=== PATIENT | female | born 1960 | race Caucasian/White ===

== ENCOUNTER 2024-12-08 11:06 | Outpatient (AMB) | payer BC, SELFPAY ==
--- NOTE | 2024-12-08 11:10 | MHC.OFFVIS ---
Vital Signs 12/08/24 11:11 Height 5 ft 4 in BP 170/80 H Blood Pressure Location Lt brachial Position Sitting Pulse 84 Pulse Source Pulse Oximeter Pulse Oximetry (%) 98 Oxygen Delivery Method Room Air Intake Visit Reasons: Arthritis Intake Note: patient presents for arthritis and states that she is in aot of pain today. Accompanied by: Self / Same As Patient Allergies Penicillins Adverse Reaction (Mild, Verified 12/08/24 11:11) Diarrhea naproxen [From Aleve] Adverse Reaction (Unknown, Verified 12/08/24 11:11) Diarrhea NSAIDS (Non-Steroidal Anti-Inflamma Adverse Reaction (Unknown, Verified 12/08/24 11:11) Unknown lysol Adverse Reaction (Unknown, Uncoded 08/29/24 16:49) unknown HPI HPI Arthritis: Details: New patient evaluation. She has history of psoriasis and is concerned about psoriatic arthritis. She has been experiencing chronic knee pain for years. She was found to have a tendon pathology in knees and osteoarthritis. She also has arthritis in feet and hands. Hx PsO around eyes and extensor surface of elbows. She uses topical steroids when needed. At this time she does not have active psoriasis. She has had chronic Achilles tendon tear not amenable to surgery. She has swelling in her fingers that improves throughout the day. Today she does not have swelling in her hands. Most pain is in her knees. She has failed cortisone injections. She is having PRP treatment in both knees in January from a provider at [facility].. PT for foot pain secondary to arthritis is delayed until PRP treatment. She uses a walker because she does not have good balance. She had to move because she could not go up stairs. MS 1.5-2 hours with minimal pain but she describes soreness in hands in the morning. She developed staph cellulitis R calf. Recently treated. She was prescribed Lasix, which improved lower extremity edema right worse than left. No hx iritis, IBD, chronic back pain when she was young, dactylitis, plantar fasciitis. Mother had dermatitis and arthritis. No family history of psoriasis or psoriatic arthritis. No known family history of rheumatological disease. Medical history and medical list reviewed in expanse. [facility] Medical History Hematuria, microscopic Achilles tendinitis Pastrana's cyst Osteoarthritis Palpitations Asthma Insomnia Anxiety Hypertension Surgical History S/P repair of ventral hernia Hx of cholecystectomy Review of Systems Const All systems reviewed & are unremarkable except as noted in HPI and below Physical Exam Vital Signs: Last Vital Signs Pulse 84 12/08/24 11:11 BP 170/80 H 12/08/24 11:11 Pulse Ox 98 12/08/24 11:11 Oxygen Delivery Method Room Air 12/08/24 11:11 Const Other: General: Comfortable CVS: RRR Respiratory: clear to auscultation bilaterally. Good respiratory effort Skin: No lesions seen MSK: No tenderness to palpate any joint in upper extremity. She has hyperextension of right 2nd and 3rd DIPJ (s/p injury), enlarged right 2nd and 3rd PIP. 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 Normal range of motion of upper extremity. Normal range of motion of bilateral hips. Knee flexion 30 degrees bilateral. Tender MTPs and ankles bilaterally. Pitting edema bilateral dorsal feet and up to the level of knees. Assessment & Plan Assessment & Plan (1) Psoriasis: Comment: Clinically she does not have any findings of inflammatory arthritis including psoriatic arthritis on exam. She has bilateral dorsal foot edema. I will be obtaining x-rays to evaluate her hand and foot pain. I suspect her pain is due to degenerative arthritis. Code(s): L40.9 - Psoriasis, unspecified Category: Medical Plan: X-ray bilateral hands and feet ordered Return to clinic in 1-2 months (2) Bilateral hand pain: Code(s): M79.641 - Pain in right hand; M79.642 - Pain in left hand Category: Medical Plan: See above (3) Foot pain, bilateral: Code(s): M79.671 - Pain in right foot; M79.672 - Pain in left foot Category: Medical Plan: See above Orders: Orders XR hand RT min 3V Today M79.641 - Pain in right hand, M79.642 - Pain in left hand XR hand LT min 3V Today M79.641 - Pain in right hand, M79.642 - Pain in left hand XR foot RT min 3V Today M79.671 - Pain in right foot, M79.672 - Pain in left foot XR foot LT min 3V Today M79.641 - Pain in right hand, M79.642 - Pain in left hand, M79.671 - Pain in right foot, M79.672 - Pain in left foot Coding Level of Care Code New Pt Level 4 (44530) Diagnoses Psoriasis L40.9 Bilateral hand pain M79.641; M79.642 Foot pain, bilateral M79.671; M79.672
[2024-12-08 11:11] VITALS: BP 170/80; PULSE 84; O2SAT 98
--- OUTSIDE RECORDS SUMMARY | 2024-12-08 12:29 | XMS_ITS | Encounter Summary ---
Author Organization [facility] Address [address] [place] [address] Phone Care Team Providers Care Painter Maintenance Name Role Phone Angelina Pastrana MD Primary Care Provider Encounter Details Date Type Department Care Team (Late st Contact Info) Description 12/08/2024 Documentation Only [facility] [address] [place] [address] [facility] [place] [address] [place] [address] Social History Tobacco Use Types Packs/Day Years Used Date Smoking Tobacco: Never Assessed Comments Unknown Sex and Gender Information Value Date Recorded Sex Assigned at Not on file Legal Sex Female 8:11 AM EDT Gender Identity Not on file Sexual Orientation Not on file documented as of this encounter Plan of Treatment Upcoming Encounters Date Type Department Care Team (Late st Contact Info) Description 12/09/2024 3:30 PM EDT Office Visit [facility] [address] [place] [address] Rk Ryan MD [address] [place] [address] [place] [phone] documented as of this encounter Visit Diagnoses Not on filedocumented in this encounter Care Teams Painter Maintenance Relationship Specialty Start Date End Date Angelina Pastrana MD [address] [place] [phone] PCP - General Internal Medicine 11/30/24 documented as of this encounter
--- OUTSIDE RECORDS SUMMARY | 2024-12-08 12:29 | XMS_ITS | Clinical Summary ---
Author Organization [facility] Address [address] [place] [address] Phone Care Team Providers Care Heel Boom Operator Name Role Phone Angelina Pastrana MD Primary Care Provider [phone] Encounters Date Type Department Care Team Description 12/08/2024 Documentation Only [facility] [address] [place] [address] Kristina Guzmán MA 11/30/2024 Telephone [facility] [address] [place] [address] Kristina Guzmán MA 11/30/2024 Office Communication [facility] [address] [place] [address] Kristina Guzmán MA 11/30/2024 Documentation Only [facility] [address] [place] [address] Kristina Guzmán MA from Last 3 Months Social History Tobacco Use Types Packs/Day Years Used Date Smoking Tobacco: Never Assessed Comments Unknown Sex and Gender Information Value Date Recorded Sex Assigned at Not on file Legal Sex Female 8:11 AM EDT Gender Identity Not on file Sexual Orientation Not on file Plan of Treatment Upcoming Encounters Date Type Department Care Team (Late st Contact Info) Description 12/09/2024 3:30 PM EDT Office Visit [facility] [address] [place] [address] Rk Ryan MD [address] [place] [address] [place] [address] Health Maintenance Due Date Last Done Comments Breast Cancer Screening 1960 Colorectal Cancer Screening: Annual FOBT 01/25/2009 Colorectal Cancer Screening: Colonoscopy 01/25/2009 Colorectal Cancer Screening: Sigmoidoscopy 01/25/2009 Influenza Vaccine (Season Ended) 2025 05/12/2020, 09/13/2019 Pneumococcal Vaccine: Pediatrics (0 to 5 Years) and At-Risk Patients (6 to 64 Years) (3 of 3 - PPSV23 or PCV20) 07/05/2025 07/05/2020, 11/18/2019 Hepatitis B Vaccine Aged Out No longe r eligible based on patient's age to complete this topic Insurance Care Teams Heel Boom Operator Relationship Specialty Start Date End Date Angelina Pastrana MD [address] [place] [address] PCP - General Internal Medicine 11/30/24
--- OUTSIDE RECORDS SUMMARY | 2024-12-08 12:29 | XMS_ITS | Encounter Summary ---
Author Organization [facility] Address [address] [place] [address] Phone Care Team Providers Care Office Machine Service Supervisor Name Role Phone Angelina aPstrana MD Primary Care Provider Encounter Details Date Type Department Care Team (Late st Contact Info) Description 11/30/2024 Documentation Only [facility] [address] [place] [address] [facility] [place] [address] [place] [address] Social History Tobacco Use Types [...] Visit [facility] [address] [place] [address] Rk Ryan MD [address] [place] [address] [place] [phone] documented as of this encounter Visit Diagnoses Not on filedocumented in this encounter Care Teams Office Machine Service Supervisor Relationship Specialty Start Date End Date Angelina Pastrana MD [address] [place] [phone] PCP - General Internal Medicine 11/30/24 documented as of this encounter
== END 2024-12-08 11:56 | disposition home or self-care (01) ==
LOC: HO.RHES 11:07
PROVIDERS: PCP Physician Assistant; Visit Provider Internal Medicine Rheumatology
DX: L40.9 Psoriasis, unspecified (principal); M79.641 Pain in right hand; M79.642 Pain in left hand; M79.671 Pain in right foot; M79.672 Pain in left foot
CPT/HCPCS: 99204

== ENCOUNTER 2024-12-14 15:27 | Outpatient (REF) | payer BC, SELFPAY ==
--- OUTSIDE RECORDS SUMMARY | 2024-12-14 17:27 | XMS_ITS | Encounter Summary ---
Author Organization [facility] Address [address] [place] [address] Phone Care Team Providers Care Cardboard Cutter Name Role Phone Angelina Pastrana MD Primary Care Provider [phone] Encounter Details Date Type Department Care Team (Late st Contact Info) Description 12/09/2024 Documentation Only [facility] [address] [place] [address] Thania Almazan [address] [place] [phone] Social History Tobacco Use Types Packs/Day Years Used Date Smoking Tobacco: Never Smokeless Tobacco: Never Comments Unknown Sex and Gender Information Value Date Recorded Sex Assigned at Not on file Legal Sex Female 8:11 AM EDT Gender Identity Not on file Sexual Orientation Not on file documented as of this encounter Plan of Treatment Upcoming Encounters Date Type Department Care Team (Late st Contact Info) Description 01/09/2025 2:30 PM EDT Office Visit [facility] [address] [place] [address] Branden Shaikh MD [address] [place] [address] [place] [address] documented as of this encounter Visit Diagnoses Not on filedocumented in this encounter Care Teams Cardboard Cutter Relationship Specialty Start Date End Date Angelina Pastrana MD [address] [place] [address] PCP - General Internal Medicine 11/30/24 documented as of this encounter
--- OUTSIDE RECORDS SUMMARY | 2024-12-14 17:27 | XMS_ITS | Encounter Summary ---
Author Organization [facility] Address [address] [place] [address] Phone Care Team Providers Care Hassock Maker Name Role Phone Angelina Pastrana MD Primary Care Provider [phone] Encounter Details Date Type Department Care Team (Late st Contact Info) Description 12/08/2024 Documentation Only [facility] [address] [place] [address] Kristina Guzmán [place] [address] [place] [phone] Social History Tobacco Use Types Packs/Day Years [...] Visit [facility] [address] [place] [address] Branden Shaikh MD [address] [place] [address] [address] [place] [address] documented as of this encounter Visit Diagnoses Not on filedocumented in this encounter Care Teams Hassock Maker Relationship Specialty Start Date End Date Angelina Pastrana MD [address] [place] [address] PCP - General Internal Medicine 11/30/24 documented as of this encounter
--- OUTSIDE RECORDS SUMMARY | 2024-12-14 17:27 | XMS_ITS | Encounter Summary ---
Author Organization [facility] Address [address] [place] [address] Phone Care Team Providers Care Office Manager Receptionist Name Role Phone Angelina Pastrana MD Primary Care Provider [phone] Encounter Details Date Type Department Care Team (Late st Contact Info) Description 12/09/2024 Documentation Only [facility] [address] [place] [address] Thania Almazan [address] [place] [phone] Social History Tobacco Use Types Packs/Day Years [...] Visit [facility] [address] [place] [address] Branden Shaikh MD [address] [place] [address] [place] [address] documented as of this encounter Visit Diagnoses Not on filedocumented in this encounter Care Teams Office Manager Receptionist Relationship Specialty Start Date End Date Angelina Pastrana MD [address] [place] [address] PCP - General Internal Medicine 11/30/24 documented as of this encounter
--- OUTSIDE RECORDS SUMMARY | 2024-12-14 17:27 | XMS_ITS | Encounter Summary ---
Author Organization [facility] Address [address] [place] [address] Phone Care Team Providers Care Cementer Machine Applicator Name Role Phone Angelina Pastrana MD Primary Care Provider [phone] Encounter Details Date Type Department Care Team (Late st Contact Info) Description 11/30/2024 Documentation Only [facility] [address] [place] [address] Kristina Guzmán [place] [address] [place] [phone] Social History Tobacco Use Types Packs/Day Years [...] Visit [facility] [address] [place] [address] Branden Shaikh MD [address] [place] [address] [address] [place] [address] documented as of this encounter Visit Diagnoses Not on filedocumented in this encounter Care Teams Cementer Machine Applicator Relationship Specialty Start Date End Date Angelina Pastrana MD [address] [place] [address] PCP - General Internal Medicine 11/30/24 documented as of this encounter
--- OUTSIDE RECORDS SUMMARY | 2024-12-14 17:27 | XMS_ITS | Clinical Summary ---
Author Organization [facility] Address [address] [place] [address] Phone Care Team Providers Care Apprentice Painter Brush Name Role Phone Angelina Pastrana MD Primary Care Provider [phone] Allergies Active Allergy Reactions Criticality Noted Date Comments Codeine 12/09/2024 Erythromycin 12/09/2024 Nsaids 12/09/2024 Other Anaphylaxis High 12/09/2024 Patient is allergic to Lysol Oxycodone 12/09/2024 Penicillins 12/09/2024 Medications metoprolol succinate XL (TOPROL XL) 50 MG 24 hr tablet Take 50 mg by mouth 1 (one) time each day Do not crush or chew. Active mexiletine (MEXITIL) 150 MG capsule Take 150 mg by mouth 1 (one) time each day Active hydroCHLOROthiaz maylin 25 MG tablet Take 25 mg by mouth 1 (one) time each day Active irbesartan (AVAPRO) 300 MG tablet Take 300 mg by mouth 1 (one) time each day Active amLODIPine (NORVASC) 5 MG tablet Take 1 tablet (5 mg total) by mouth 1 (one) time each day 30 tablet 11 12/09/2024 Active Active Problems Problem Noted Date Diagnosed Date Stage 3b chronic kidney disease 12/09/2024 Irregular heart beat Essential hypertension Localized edema Microscopic hematuria Encounters Date Type Department Care Team Description 12/13/2024 Telephone [facility] [address] [place] [place] [address] Thania Almazan 12/09/2024 3:30 PM EDT Office Visit [facility] [address] [place] [address] Branden Shaikh MD Nephrotic range proteinuria (Primary Dx); Stage 3b chronic kidney disease (HCC) 12/09/2024 Documentation Only [facility] [place] [address] [place] [address] Tha, Thania 12/09/2024 Documentation Only [facility] [place] [address] [place] [address] Tha, Thania 12/09/2024 Documentation Only [facility] [place] [address] [place] [address] Tha, Thania 12/09/2024 Documentation Only [facility] [address] [place] [address] Tha, Thania 12/08/2024 Documentation Only [facility] [address] [place] [address] Kristina Guzmán MA 11/30/2024 Telephone [facility] [address] [place] [address] Kristina Guzmán MA 11/30/2024 Office Communication [facility] [address] [place] [address] Kristina Guzmán MA 11/30/2024 Documentation Only [facility] [place] [address] [place] [address] Kristina Guzmán MA from Last 3 Months Immunizations Name Administration Dates Next Due Influenza, MDCK, Quadrivalent, with preservative 09/13/2019 Influenza, Quadrivalent, Preservative Free 05/12 Pfizer SARS-COV-2 01/17/2021,11/09/2020 Pneumococcal Conjugate 13-Valent 11/18/2019 Pneumococcal Polysaccharide 07/05/2020 Family History Medical History Relation Comments Cancer Father of the brain Heart disease Father Asthma Mother Heart disease Mother Hypertension Mother Relation Status Comments Father Mother Social History Tobacco Use Types Packs/Day Years Used Date Smoking Tobacco: Never Smokeless Tobacco: Never Comments Unknown Sex and Gender Information Value Date Recorded Sex Assigned at Not on file Legal Sex Female 8:11 AM EDT Gender Identity Not on file Sexual Orientation Not on file Last Filed Vital Signs Vital Sign Reading Time Taken Comments Blood Pressure 144/74 12/12/2024 4:41 PM EDT Pulse - - Temperature - - Respiratory Rate - - Oxygen Saturation - - Inhaled Oxygen Concentration - - Weight - - Height - - Body Mass Index - - Plan of Treatment Upcoming Encounters Date Type Department Care Team (Late st Contact Info) Description 01/09/2025 2:30 PM EDT Office Visit [facility] [address] [place] [address] Branden Shaikh MD [address] [place] [address] [address] [place] [address] Health Maintenance Due Date Last Done Comments [...] patient's age to complete this topic Insurance [facility] Care Teams Apprentice Painter Brush Relationship Specialty Start Date End Date Angelina Pastrana MD [address] [place] [address] PCP - General Internal Medicine 11/30/24
--- OUTSIDE RECORDS SUMMARY | 2024-12-14 17:27 | XMS_ITS | Encounter Summary ---
Author Organization [facility] Address [address] [place] [address] Phone Care Team Providers Care Scada Engineer Name Role Phone Angelina Pastrana MD Primary Care Provider [phone] Encounter Details Date Type Department Care Team (Late st Contact Info) Description 12/09/2024 3:30 PM EDT Office Visit [facility] [address] [place] [address] Branden Shaikh MD [address] [place] [address] [place] [phone] Nephrotic range proteinuria (Primary Dx); Stage 3b chronic kidney disease (HCC) Social History Tobacco Use Types Packs/Day Years Used Date Smoking Tobacco: Never Smokeless Tobacco: Never Comments Unknown Sex and Gender Information Value Date Recorded Sex Assigned at Not on file Legal Sex Female 8:11 AM EDT Gender Identity Not on file Sexual Orientation Not on file documented as of this encounter Last Filed Vital Signs Vital Sign Reading Time Taken Comments Blood Pressure 144/74 12/12/2024 4:41 PM EDT Pulse - - Temperature - - Respiratory Rate - - Oxygen Saturation - - Inhaled Oxygen Concentration - - Weight - - Height - - Body Mass Index - - documented in this encounter Plan of Treatment Upcoming Encounters Date Type Department Care Team (Late st Contact Info) Description 01/09/2025 2:30 PM EDT Office Visit [facility] [address] [place] [address] Branden Shaikh MD [address] [place] [place] [address] Scheduled Orders Name Type Priority Associated Diagnoses Orde r Schedule Urine Albumin / Creatinine Ratio Lab Routine Nephrotic range proteinuria Stage 3b chronic kidney disease (HCC) Expected: 12/09/2024, Expires: 01/08/2026 Urine Protein / creatinine ratio Lab Routine Nephrotic range proteinuria Stage 3b chronic kidney disease (HCC) Expected: 12/09/2024, Expires: 01/08/2026 Urinalysis with microscopic Lab Routine Nephrotic range proteinuria Stage 3b chronic kidney disease (HCC) Expected: 12/09/2024, Expires: 01/08/2026 Protein electrophoresis, serum Lab Routine Nephrotic range proteinuria Stage 3b chronic kidney disease (HCC) Expected: 12/09/2024, Expires: 01/08/2026 Protein Electrophoresis, Urine Random Lab Routine Nephrotic range proteinuria Stage 3b chronic kidney disease (HCC) Expected: 12/09/2024, Expires: 01/08/2026 Urine Elton / lambda free light chains with ratio Lab Routine Nephrotic range proteinuria Stage 3b chronic kidney disease (HCC) Expected: 12/09/2024, Expires: 12/09/2025 Immunofixation, Serum Lab Routine Nephrotic range proteinuria Stage 3b chronic kidney disease (HCC) Expected: 12/09/2024, Expires: 01/08/2026 C3 complement Lab Routine Nephrotic range proteinuria Stage 3b chronic kidney disease (HCC) Expected: 12/09/2024, Expires: 01/08/2026 C4 complement Lab Routine Nephrotic range proteinuria Stage 3b chronic kidney disease (HCC) Expected: 12/09/2024, Expires: 01/08/2026 Anti-DNA antibody, double-stranded Lab Routine Nephrotic range proteinuria Stage 3b chronic kidney disease (HCC) Expected: 12/09/2024, Expires: 01/08/2026 ANCA Panel Lab Routine Nephrotic range proteinuria Stage 3b chronic kidney disease (HCC) Expected: 12/09/2024, Expires: 01/08/2026 MPO and PR3 ab Lab Routine Nephrotic range proteinuria Stage 3b chronic kidney disease (HCC) Expected: 12/09/2024, Expires: 01/08/2026 Phospholipase A2 Receptor Antibodies Lab Routine Nephrotic range proteinuria Stage 3b chronic kidney disease (HCC) Expected: 12/09/2024, Expires: 01/08/2026 Glomerular basement membrane antibodies Lab Routine Nephrotic range proteinuria Stage 3b chronic kidney disease (HCC) Expected: 12/09/2024, Expires: 01/08/2026 Renal function panel Lab Routine Nephrotic range proteinuria Stage 3b chronic kidney disease (HCC) Expected: 12/09/2024, Expires: 01/08/2026 documented as of this encounter Visit Diagnoses Diagnosis Nephrotic range proteinuria- Primary Stage 3b chronic kidney disease (HCC) documented in this encounter Care Teams Scada Engineer Relationship Specialty Start Date End Date Angelina Pastrana MD [address] [facility] [place] [address] PCP - General Internal Medicine 11/30/24 documented as of this encounter
--- OUTSIDE RECORDS SUMMARY | 2024-12-14 17:27 | XMS_ITS | Encounter Summary ---
Author Organization [facility] Address [address] [place] [address] Phone Care Team Providers Care Accelerator Systems Director Name Role Phone Angelina Pastrana MD Primary Care Provider [phone] Encounter Details Date Type Department Care Team (Late st Contact Info) Description 12/09/2024 Documentation Only [facility] [address] [place] [address] Thania Almazan [address] [place] [phone] Social History Tobacco Use Types Packs/Day Years [...] Visit [facility] [address] [place] [address] Branden Shaikh MD [address] [place] [address] [place] [address] documented as of this encounter Visit Diagnoses Not on filedocumented in this encounter Care Teams Accelerator Systems Director Relationship Specialty Start Date End Date Angelina Pastrana MD [address] [place] [address] PCP - General Internal Medicine 11/30/24 documented as of this encounter
--- OUTSIDE RECORDS SUMMARY | 2024-12-14 17:27 | XMS_ITS | Encounter Summary ---
Author Organization [facility] Address [address] [place] [address] Phone Care Team Providers Care Alarm Installer Name Role Phone Angelina Pastrana MD Primary Care Provider [phone] Encounter Details Date Type Department Care Team (Late st Contact Info) Description 12/09/2024 Documentation Only [facility] [address] [place] [address] Thania Almazan [address] [place] [phone] Social History Tobacco Use Types Packs/Day Years [...] Visit [facility] [address] [place] [address] Branden Shaikh MD [address] [place] [address] [place] [address] documented as of this encounter Visit Diagnoses Not on filedocumented in this encounter Care Teams Alarm Installer Relationship Specialty Start Date End Date Angelina Pastrana MD [address] [place] [address] PCP - General Internal Medicine 11/30/24 documented as of this encounter
--- OUTSIDE RECORDS SUMMARY | 2024-12-14 17:27 | XMS_ITS | Encounter Summary ---
Author Organization [facility] Address [address] [place] [address] Phone Care Team Providers Care Computer Forensic Examiner Name Role Phone Angelina Pastrana MD Primary Care Provider [phone] Encounter Details Date Type Department Care Team (Late Contact Info) Description 12/13/2024 Telephone [facility] [address] [place] [address] Thania Almazan [address] [place] [phone] Social History Tobacco Use Types Packs/Day Years Used Date Smoking Tobacco: Never Smokeless Tobacco: Never Comments Unknown Sex and Gender Information Value Date Recorded Sex Assigned at Not on file Legal Sex Female 8:11 AM EDT Gender Identity Not on file Sexual Orientation Not on file documented as of this encounter Miscellaneous Notes * Telephone Encounter - Thania Almazan - 12/13/2024 9:31 AM EDT Error not needed. documented in this encounter Plan of Treatment Upcoming Encounters Date Type Department Care Team (Late st Contact Info) Description 01/09/2025 2:30 PM EDT Office [facility] [address] [place] [address] Branden Shaikh MD [address] [place] [address] [place] [address] documented as of this encounter Visit Diagnoses Not on filedocumented in this encounter Care Teams Computer Forensic Examiner Relationship Specialty Start Date End Date Angelina Pastrana MD [address] [facility] [place] [address] PCP - General Internal Medicine 11/30/24 documented as of this encounter
[2024-12-14 18:58] LABS: Anion Gap 13 (12-20); Blood Urea Nitrogen 32 mg/dL (9-16); Calcium 8.8 mg/dL (8.4-10.2); Carbon Dioxide 25 mmol/L (22-29); Chloride 108 mmol/L (96-108); Estimated Glomerular Filt Rate 30; Potassium 3.6 mmol/L (3.3-5.1); Sodium 142 mmol/L (135-145)
[2024-12-15 18:08] LABS: Complement C3 157 mg/dL (83-193)
[2024-12-15 22:28] LABS: Anti DNA DS Antibody 1 IU/mL; Anti Glomerular Basement Memb <1.0 AI; Myeloperoxidase Antibody <1.0 AI; Proteinase 3 PR3 Antibodies <1.0 AI
[2024-12-16 14:03] LABS: Neutrophil Cyto Ab Screen NEGATIVE (NEGATIVE)
[2024-12-19 21:57] LABS: Prot Elec - Albumin 2.9 g/dL (3.8-4.8); Prot Elec - Alpha1 0.3 g/dL (0.2-0.3); Prot Elec - Alpha2 0.9 g/dL (0.5-0.9); Prot Elec - Beta 1 0.5 g/dL (0.4-0.6); Prot Elec - Beta 2 0.6 g/dL (0.2-0.5); Prot Elec - Gamma 0.8 g/dL (0.8-1.7); Prot Elec - Total Protein 5.9 g/dL (6.1-8.1)
[2024-12-24 16:34] LABS: Phospholipase A2 IgG ELISA <4 RU/mL; Phospholipase A2 IgG IFA NEGATIVE (NEGATIVE)
== END 2024-12-14 15:28 | disposition home or self-care (01) ==
LOC: HO.WFDLDS 15:27
PROVIDERS: Visit Provider Student in an Organized Health Care Education/Training Program
DX: N18.32 Chronic kidney disease, stage 3b (principal); R80.8 Other proteinuria
CPT/HCPCS: 36415; 80051; 82310; 82565; 83520; 84165; 84520; 86021; 86036; 86160; 86225; 86255

== ENCOUNTER 2024-12-20 17:58 | Outpatient (REF) | payer BC, SELFPAY ==
[2024-12-20 18:48] LABS: Appearance Urine Cloudy; Color Urine Yellow; Glucose Urine UA 100 mg/dL (Negative); Leukocyte Esterase Urine Trace (Negative); Nitrite Urine Negative (Negative); PH 5.5 (5.0-9.0); Specific Gravity - Urine 1.015 (1.005-1.025); UMIC TRIGGER UA YES; Urine Blood Moderate (2+) (Negative); Urine Ketones Negative (Negative); Urine Protein 300 (3+) mg/dL (Neg-Trace)
[2024-12-20 19:02] LABS: Bacteria Urine None Seen (None Seen); Granular Casts Urine Present; Hyaline Casts Urine >20 /LPF (0-2); WBC Urine 21-50 /HPF (0-5)
[2024-12-20 19:07] LABS: Creatinine Urine 93.76 mg/dL
--- OUTSIDE RECORDS SUMMARY | 2024-12-20 19:08 | XMS_ITS | Encounter Summary ---
Author Organization [facility] Address [address] [place] [address] Phone Care Team Providers Care Assistant Librarian Name Role Phone Angelina Pastrana MD Primary Care Provider [phone] Encounter Details Date Type Department Care Team (Late st Contact Info) Description 12/09/2024 Documentation Only [facility] [address] [place] [address] Thania Almazan [address] [place] [phone] Social History Tobacco Use Types Packs/Day Years [...] Visit [facility] [address] [place] [address] Branden Shaikh MD [address] [place] [address] [place] [address] documented as of this encounter Visit Diagnoses Not on filedocumented in this encounter Care Teams Assistant Librarian Relationship Specialty Start Date End Date Angelina Pastrana MD [address] [place] [phone] PCP - General Internal Medicine 11/30/24 documented as of this encounter
--- OUTSIDE RECORDS SUMMARY | 2024-12-20 19:08 | XMS_ITS | Encounter Summary ---
Author Organization [facility] Address [address] [place] [address] Phone Care Team Providers Care Instructor Of Education Name Role Phone Angelina Pastrana MD Primary Care Provider [phone] Encounter Details Date Type Department Care Team (Late st Contact Info) Description 12/08/2024 Documentation Only [facility] [address] [place] [address] Kristina Guzmán [place] [address] [place] [phone] Social History Tobacco Use Types Packs/Day Years [...] Visit [facility] [address] [place] [address] Branden Shaikh MD [address] [place] [address] [address] [place] [address] documented as of this encounter Visit Diagnoses Not on filedocumented in this encounter Care Teams Instructor Of Education Relationship Specialty Start Date End Date Angelina Pastrana MD [address] [place] [address] PCP - General Internal Medicine 11/30/24 documented as of this encounter
--- OUTSIDE RECORDS SUMMARY | 2024-12-20 19:08 | XMS_ITS | Encounter Summary ---
Author Organization [facility] Address [address] [place] [address] Phone Care Team Providers Care Government Professor Name Role Phone Angelina Pastrana MD Primary Care Provider [phone] Encounter Details Date Type Department Care Team (Late st Contact Info) Description 12/09/2024 Documentation Only [facility] [address] [place] [address] Thania Almazan [address] [place] [phone] Social History Tobacco Use Types Packs/Day Years [...] Visit [facility] [address] [place] [address] Branden Shaikh MD [address] [place] [address] [place] [address] documented as of this encounter Visit Diagnoses Not on filedocumented in this encounter Care Teams Government Professor Relationship Specialty Start Date End Date Angelina Pastrana MD [address] [place] [phone] PCP - General Internal Medicine 11/30/24 documented as of this encounter
--- OUTSIDE RECORDS SUMMARY | 2024-12-20 19:08 | XMS_ITS | Clinical Summary ---
Author Organization [facility] Address [address] [place] [address] Phone Care Team Providers Care Drop Wirer Name Role Phone Angelina Pastrana MD Primary Care Provider [phone] Allergies Active Allergy Reactions Criticality Noted Date [...] Telephone [facility] [address] [place] [address] Thania Almazan 12/09/2024 3:30 PM EDT Office Visit [facility] Of [address] [place] [address] Branden Shaikh MD Nephrotic range proteinuria (Primary Dx); Stage 3b chronic kidney disease (HCC) 12/09/2024 Documentation Only [facility] [address] [place] [address] Tha, Thania 12/09/2024 Documentation Only [facility] [address] [place] [address] Tha, Thania 12/09/2024 Documentation Only [facility] [address] [place] [address] Tha, Thania 12/09/2024 Documentation Only [facility] [address] [place] [address] Tha, Thania 12/08/2024 Documentation Only [facility] [address] [place] [address] Kristina Guzmán MA 11/30/2024 Telephone [facility] [address] [place] [address] Kristina Guzmán MA 11/30/2024 Office Communication [facility] [address] [place] [address] Kristina Guzmán MA 11/30/2024 Documentation Only [facility] [address] [place] [address] Kristina Guzmán MA from Last 3 Months Immunizations Immunization Administration Dates Next Due Influenza, MDCK, Quadrivalent, [...] Visit [facility] [address] [place] [phone] Branden Shaikh MD [address] [place] [address] [address] [place] [address] Health Maintenance Due Date Last Done Comments Breast Cancer Screening 1960 Colorectal Cancer Screening: Annual FOBT 01/25/2009 Colorectal Cancer Screening: Colonoscopy 01/25/2009 Colorectal Cancer Screening: Sigmoidoscopy 01/25/2009 Influenza Vaccine (Season Ended) 2025 05/12/2020, 09/13/2019 Pneumococcal Vaccine: 50+ Years (3 of 3 - PPSV23, PCV20 or PCV21) 07/05/2025 07/05/2020, 11/18/2019 Pneumococcal Vaccine: Peds ( 0 to 5 Years) and At-Risk Patients (6 to 49 Years) Discontinued 07/05/2020, 11/18/2019 Hepatitis B Vaccine Aged Out No longe r eligible based on patient's age to complete this topic Insurance [facility] Care Teams Drop Wirer Relationship Specialty Start Date End Date Angelina Pastrana MD [address] [place] [address] PCP - General Internal Medicine 11/30/24
--- OUTSIDE RECORDS SUMMARY | 2024-12-20 19:08 | XMS_ITS | Encounter Summary ---
Author Organization [facility] Address [address] [place] [address] Phone Care Team Providers Care Open Soaper Tender Name Role Phone Angelina Pastrana MD Primary Care Provider [phone] Encounter Details Date Type Department Care Team (Late st Contact Info) Description 12/09/2024 Documentation Only [facility] [address] [place] [address] Thania Almazan [address] [place] [phone] Social History Tobacco Use Types Packs/Day Years [...] Visit [facility] [address] [place] [address] Branden Shaikh MD [address] [place] [address] [place] [address] documented as of this encounter Visit Diagnoses Not on filedocumented in this encounter Care Teams Open Soaper Tender Relationship Specialty Start Date End Date Angelina Pastrana MD [address] [place] [phone] PCP - General Internal Medicine 11/30/24 documented as of this encounter
--- OUTSIDE RECORDS SUMMARY | 2024-12-20 19:08 | XMS_ITS | Encounter Summary ---
Author Organization [facility] Address [address] [place] [address] Phone Care Team Providers Care Senior Account Clerk Name Role Phone Angelina Pastrana MD Primary Care Provider [phone] Encounter Details Date Type Department Care Team (Late st Contact Info) Description 11/30/2024 Documentation Only [facility] [address] [place] [address] Kristina Guzmán [place] [address] [place] [phone] Social History Tobacco Use Types Packs/Day Years [...] Visit [facility] [address] [place] [address] Branden Shaikh MD [address] [place] [address] [address] [place] [address] documented as of this encounter Visit Diagnoses Not on filedocumented in this encounter Care Teams Senior Account Clerk Relationship Specialty Start Date End Date Angelina Pastrana MD [address] [place] [phone] PCP - General Internal Medicine 11/30/24 documented as of this encounter
--- OUTSIDE RECORDS SUMMARY | 2024-12-20 19:08 | XMS_ITS | Encounter Summary ---
Author Organization [facility] Address [address] [place] [address] Phone Care Team Providers Care Casting Machine Set Up Operator Name Role Phone Angelina Pastrana MD Primary Care Provider [phone] Encounter Details Date Type Department Care Team (Late st Contact Info) Description 12/09/2024 Documentation Only [facility] [address] [place] [address] Thania Almazan [address] [place] [phone] Social History Tobacco Use Types Packs/Day Years [...] Visit [facility] [address] [place] [address] Branden Shaikh MD [address] [place] [address] [place] [address] documented as of this encounter Visit Diagnoses Not on filedocumented in this encounter Care Teams Casting Machine Set Up Operator Relationship Specialty Start Date End Date Angelina Pastrana MD [address] [place] [phone] PCP - General Internal Medicine 11/30/24 documented as of this encounter
[2024-12-20 19:21] LABS: Microalbum/Creatinine Ratio Ur 2133.1 ug/mg cr (<30); Microalbumin Urine > 2000.0 mg/L
[2024-12-20 19:32] LABS: Protein/Creatinine Ratio, Ur 6.04 (<0.2); Total Protein Urine Random 566 mg/dL (<12)
[2024-12-27 06:34] LABS: PEU-Protein Creat Ratio Rand 7.704 (0.024-0.184); PEU-Rand. Prot/Creat Ratio 7704 mg/g creat (24-184); PEU-Random Ur. Gamma Globulin 12 %; PEU-Random Urine A1 Globulin 3 %; PEU-Random Urine A2 Globulin 9 %; PEU-Random Urine Albumin 67 %; PEU-Random Urine Beta Globulin 9 %; PEU-Random Urine Creatinine 98 mg/dL (20-275); PEU-Random Urine Protein 755 mg/dL (5-24)
[2024-12-28 08:03] LABS: Free Kappa Lt Chains,Ur 158.17 (H); Free Lambda Lt Chains,Ur 47.71 (H); Kappa/Lambda Ratio,U 3.32
== END 2024-12-20 17:59 | disposition home or self-care (01) ==
LOC: HO.LNP 17:58
PROVIDERS: Visit Provider Student in an Organized Health Care Education/Training Program
DX: R80.8 Other proteinuria (principal); N18.32 Chronic kidney disease, stage 3b
CPT/HCPCS: 81001; 82043; 82570; 83521; 84156; 84166